=== PATIENT | female | born 1995 | race Asian ===

== ENCOUNTER 2023-06-19 13:10 | Inpatient (IN) | payer OTHER ==
[~2023-06-19] VITALS: Ht 160 cm; Wt 73.5 kg
[2023-06-19] MEDS ORDERED: COLA100C5 PO (13:30)
[2023-06-19] MEDS ORDERED: PRENTAB9 PO (13:30)
[2023-06-19] MEDS ORDERED: HOME MED LIST COMPLETE! XX SCH (13:30)
[2023-06-19 13:34] VITALS: BP 127/75
[2023-06-19] MEDS ORDERED: METHYLERGONOVINE MALEATE 0.2MG/ML 1ML VIAL IM PRN (15:50)
[2023-06-19] MEDS ORDERED: OXYTOCIN DRIP 30 UNITS in IV 1 EA IV PRN ×4 (15:50)
[2023-06-19] MEDS ORDERED: LIDOCAINE 1% MDV 20ML VIAL INFIL PRN (15:50)
[2023-06-19] MEDS ORDERED: TRANEXAMIC ACID INJection 1,000 MG in NS 100 ML IV PRN (15:50)
[2023-06-19 16:29] LABS: HEMATOCRIT 40.9 % (36.0-47.0); HEMOGLOBIN 13.8 g/dl (12.0-15.5); MEAN CORPUSCULAR HEMOGLOBIN 31.4 pg (27.0-33.0); MEAN CORPUSCULAR HGB CONC 33.7 g/dl (32.0-36.5); PLATELET COUNT, AUTOMATED 169 10^3/uL (150-450); WHITE BLOOD COUNT 9.9 10^3/uL (4.0-10.0)
[2023-06-19 16:38] VITALS: BP 135/73; O2SAT 98
[2023-06-19 19:55] VITALS: BP 117/77
[2023-06-19 22:59] VITALS: BP 106/60
[2023-06-20] VITALS (46 sets, daily range): BP systolic 101–162; BP diastolic 55–84; O2SAT 96–98
[2023-06-20] MEDS ORDERED: BUTORPHANOL 2 MG/ML 1ML VIAL IV ONE (01:35)
[2023-06-20] MEDS ORDERED: PROMETHAZINE 25MG/ML 1ML VIAL IV ONE (01:35)
[2023-06-20] MEDS ORDERED: ePHEDrine SULFATE 25 MG/5 ML(5MG/ML) SYRINGE IVP PRN (12:25)
[2023-06-20] MEDS ORDERED: FENTANYL/ROPIVACAINE/NACL BAG 100 ML EPIDURAL SCH (12:25)
[2023-06-20] MEDS ORDERED: NALOXONE INJ 0.4MG/1ML VIAL IV PRN (12:25)
[2023-06-20] MEDS ORDERED: LR 500 ML IV PRN (12:25)
[2023-06-20] MEDS ORDERED: diphenhydrAMINE 50MG/ML VIAL IV PRN (12:25)
[2023-06-20] MEDS ORDERED: EPIDURAL/PCA KEYS XX PRN (12:25)
[2023-06-20] MEDS ORDERED: ONDANSETRON 4MG 2ML VIAL IV PRN (12:25)
[2023-06-20] MEDS ORDERED: FENTANYL 2MCG/ML ROPIVACAINE 0.2% IN 0.9% NACL 100ML IVBAG As Ordered ONE (12:26)
[2023-06-20] MEDS ORDERED: REFLB XX ONE (12:26)
[2023-06-20] MEDS: LR 1,000 ML IV SCH ×3 (12:32→18:02)
[2023-06-20] MEDS ORDERED: OXYTOCIN DRIP 30 UNITS in IV 1 EA IV SCH (12:55)
[2023-06-20] MEDS ORDERED: LR 1,000 ML IV SCH (12:55)
[2023-06-20] MEDS: FENTANYL/ROPIVACAINE/NACL BAG 100 ML EPIDURAL SCH ×2 (13:30→21:59)
[2023-06-20] MEDS ORDERED: ACETAMINOPHEN 500 MG TAB PO ONE (20:10)
[2023-06-21] VITALS (12 sets, daily range): BP systolic 107–131; BP diastolic 55–83; O2SAT 98–100
[2023-06-21 01:08] LABS: CORD GAS ABE A -8.9; CORD GAS HCO3 A 19.7 MMOL/L; CORD GAS O2 SAT A 58.4 %; CORD GAS PCO2 A 53.5 mmHg; CORD GAS PH A 7.185 UNITS; CORD GAS PO2 A 26.3 mmHg; CORD GAS SBC A 16.6 MMOL/L; CORD GAS TCO2 A 21.4 MMOL/L
[2023-06-21 01:08] LABS: CORD GAS ABE V -7.8; CORD GAS O2 SAT V 47.3 %; CORD GAS PH V 7.294 UNITS; CORD GAS PO2 V 20.8 mmHg; CORD GAS SBC V 17.2 MMOL/L; CORD GAS TCO2 V 19.2 MMOL/L
[2023-06-21] MEDS ORDERED: MOM 30ML SUSPENSION UDC PO PRN (01:25)
[2023-06-21] MEDS ORDERED: RHOGAM 300MCG (1500IU) INJ IM SCH (01:25)
[2023-06-21] MEDS ORDERED: DOCUSATE SODIUM 100MG CAPSULE PO PRN (01:25)
[2023-06-21] MEDS ORDERED: ACETAMINOPHEN TAB 650MG DOSE (2X325MG) PO PRN (01:25)
[2023-06-21] MEDS ORDERED: METOCLOPRAMIDE INJ 10MG/2ML VIAL IV PRN (01:25)
[2023-06-21] MEDS ORDERED: DIBUCAINE 1% OINTMENT 30GM TOP PRN (01:25)
[2023-06-21] MEDS ORDERED: IBUPROFEN 600MG TAB PO PRN (01:25)
[2023-06-21] MEDS ORDERED: OXYTOCIN DRIP 30 UNITS in IV 1 EA IV SCH (01:25)
[2023-06-21] MEDS ORDERED: METHYLERGONOVINE MALEATE 0.2 MG TAB PO PRN (01:25)
[2023-06-21] MEDS: LR 1,000 ML IV SCH ×2 (01:25→03:51)
[2023-06-21] MEDS: IBUPROFEN 800 MG TAB PO PRN ×3 (02:42→14:14)
[2023-06-21] MEDS: PRENATAL VITAMINS CHEWABLE TABLET PO SCH (08:16)
[2023-06-21] MEDS: ACETAMINOPHEN 500 MG TAB PO PRN ×2 (08:18→14:15)
[2023-06-21] MEDS ORDERED: PRENATAL VITAMINS CHEWABLE TABLET PO SCH (09:00)
[2023-06-22 06:07] VITALS: BP 93/55; O2SAT 99
[2023-06-22] MEDS: PRENATAL VITAMINS CHEWABLE TABLET PO SCH (08:31)
[2023-06-22] MEDS ORDERED: IBUP-1022 PO (08:49)
[2023-06-22] MEDS ORDERED: ACET1TAB55 PO (08:49)
[2023-06-23] MEDS ORDERED: MEASLES,MUMPS,RUBELLA VACCINE INJ (MMR-II) SC.IMMUN ONE (09:00)
== END 2023-06-22 12:15 | disposition home or self-care (01) | DRG 807 ==
LOC: M LDO 13:10 → M LDI 16:00 → M OBS 06-21 03:05
PROVIDERS: ADMIT Obstetrics & Gynecology; ATTEND Obstetrics & Gynecology
PROC: 10907ZC Drainage of Amniotic Fluid, Therapeutic from Products of Conception, Via Natural or Artificial Opening (ICD-10-PCS; 2023-06-20)
PROC: 10E0XZZ Delivery of Products of Conception, External Approach (ICD-10-PCS; principal; 2023-06-21)
PROC: 0KQM0ZZ Repair Perineum Muscle, Open Approach (ICD-10-PCS; 2023-06-21)
DX: O48.0 Post-term pregnancy (principal); Z37.0 Single live birth; Z3A.40 40 weeks gestation of pregnancy; O32.6XX0 Maternal care for compound presentation, not applicable or unspecified; O70.1 Second degree perineal laceration during delivery